=== PATIENT | male | born 1995 | race African-American/Black ===

== ENCOUNTER 2016-06-01 16:04 | Emergency (ER) | payer SELFPAY ==
[~2016-06-01] VITALS: Ht 185.4 cm; Wt 68.0 kg
[2016-06-01] MEDS ORDERED: ONDANSETRON PF 4 MG/2 ML VIAL. ONE (16:21)
[2016-06-01] MEDS ORDERED: LORAZEPAM 2 MG/ML VIAL ONE (16:39)
[2016-06-01] MEDS ORDERED: LORAZEPAM 2 MG/ML VIAL IV ONE (17:00)
[2016-06-01] MEDS ORDERED: IV NORMAL SALINE 1000ML BAG 1,000 ML IV ONE (17:00)
[2016-06-01 17:02] LABS: BARBITURATES NEG (NEG); BENZODIAZEPINES NEG (NEG); CANNABINOIDS POS (NEG); COCAINE NEG (NEG); METHADONE NEG (NEG); OPIATES NEG (NEG); PHENCYCLIDINE NEG (NEG)
[2016-06-01 17:05] LABS: ETHANOL, URINE NEG (NEG)
[2016-06-01 17:09] LABS: CALCIUM 10.1 mg/dL (8.5-10.1); CREATININE 1.4 mg/dL (0.7-1.3); GFR 77.4
[2016-06-01 17:14] LABS: ETHANOL < 10 mg/dL (0-10)
[2016-06-01] MEDS ORDERED: ONDANSETRON PF 4 MG/2 ML VIAL. IV ONE (17:15)
[2016-06-01 17:17] LABS: POTASSIUM 2.7 mmol/L (3.5-5.1)
[2016-06-01 17:24] LABS: BASO % 0 % (0-3); EOS % 0 % (0-3); HEMATOCRIT 44.3 % (39.0-53.0); HEMOGLOBIN 14.8 g/dL (13.0-17.5); LYMPH # 1.1 x10^3/uL (1.0-4.8); LYMPH % 6 % (24-48); MEAN CORPUSCULAR HEMOGLOBIN 31 pg (25-35); MEAN CORPUSCULAR HGB CONC 33 g/dL (31-37); MEAN CORPUSCULAR VOLUME 92 fL (79-100); MONO % 9 % (0-9); NEUT % 85 % (31-73); PLATELET COUNT 192 x10^3/uL (140-400); RED BLOOD COUNT 4.82 x10^6/uL (4.30-5.70); WHITE BLOOD COUNT 16.6 x10^3/uL (4.0-11.0)
--- NOTE | 2016-06-01 17:45 | RAD ---
PROCEDURE CT head without intravenous contrast. HISTORY Altered mental status. TECHNIQUE Axial images are obtained of the head from the skull base through the vertex without IV contrast Exposure: One or more of the following individualized dose reduction techniques were utilized for this examination: 1. Automated exposure control. 2. Adjustment of the mA and/or kV according to patient size. 3. Use of iterative reconstruction technique. COMPARISON CT head February 26, 2015. FINDINGS The ventricles are appropriate in size, shape, and location for the patient's age.No obvious intracranial mass, mass-effect, midline shift, hemorrhage or obvious acute infarction is identified.Basilar cisterns are patent. Bone windows demonstrate no acute calvarial abnormality.There is opacification of a single left ethmoid air cell, similar to previous study. IMPRESSION No acute intracranial process. Electronically signed by: El Cabrera MD (Jun 01, 2016 17:44:14)
[2016-06-01 18:35] VITALS: BP 113/56
--- NOTE | 2016-06-01 19:12 | PHYS DOC ---
Past Medical History Past Medical History: No Pertinent History Past Surgical History: No Surgical History Alcohol Use: None Drug Use: Marijuana, Other Social History Narrative: PT IS ON SOME UNKNOWN SUBSTANCE Adult General Chief Complaint Chief Complaint: ALTERED MENTAL STATUS HPI HPI This is an otherwise healthy 20-year-old male presents with mental status changes after being found any parking lot acutely confused. Patient on arrival cannot tell me where he is and his repetitive with his speech. He denies any specific complaints. He does not appear to be in any acute distress. Family at bedside states he does not have any history of significant past medical problems. Review of Systems Review of Systems A 10 point review of systems is unable be obtained secondary to the patient's mental status. Current Medications Current Medications Current Medications Medications (Trade) Dose Ordered Sig/Korin Start Time Stop Time Status Last Admin Dose Admin Lorazepam (Ativan) 2 mg STK-MED ONCE 06/01/16 16:39 06/01/16 16:40 DC Lorazepam 2 mg 2 mg 1X ONCE 06/01/16 17:00 06/01/16 17:01 DC 06/01/16 17:00 2 MG Ondansetron HCl (Zofran) 4 mg 1X ONCE 06/01/16 17:15 06/01/16 17:16 DC 06/01/16 17:09 4 MG Sodium Chloride (Iv Sodium Chloride 0.9% 1000ml Bag) 1,000 ml @ 1,000 mls/hr 1X ONCE 06/01/16 17:00 06/01/16 17:59 DC 06/01/16 17:00 1,000 MLS/HR Allergies Allergies Allergies Coded Allergies Type Severity Reaction Last Updated Verified No Known Drug Allergies 02/26/15 No Physical Exam Physical Exam Constitutional: Well developed, well nourished, no acute distress, non-toxic appearance. [] HENT: Normocephalic, atraumatic, bilateral external ears normal, oropharynx moist, no oral exudates, nose normal. [] Eyes: PERRLA, EOMI, conjunctiva normal, no discharge. [] Neck: Normal range of motion, no tenderness, supple, no stridor. [] Cardiovascular:Heart rate regular rhythm, no murmur [] Lungs & Thorax: Bilateral breath sounds clear to auscultation [] Abdomen: Bowel sounds normal, soft, no tenderness, no masses, no pulsatile masses. [] Skin: Warm, dry, no erythema, no rash. [] Back: No tenderness, no CVA tenderness. [] Extremities: No tenderness, no cyanosis, no clubbing, ROM intact, no edema. [] Neurologic: Alert and oriented X 1 (person), normal motor function, normal sensory function, no focal deficits noted. [] Psychologic: Affect normal, judgement normal, mood normal. [] Current Patient Data Vital Signs Vital Signs Date Time Temp Pulse Resp B/P Pulse Ox O2 Delivery O2 Flow Rate FiO2 06/01/16 18:35 84 20 113/56 98 Room Air 06/01/16 16:35 97.9 97.9 Lab Values Laboratory Tests Test 06/01/16 16:20 06/01/16 16:30 06/01/16 17:17 Sodium Level 141mmol/L (136-145) Potassium Level 2.7mmol/L (3.5-5.1) *L Chloride Level 98mmol/L (98-107) Carbon Dioxide Level 21mmol/L (21-32) Anion Gap 22 (6-14) H Blood Urea Nitrogen 15mg/dL (8-26) Creatinine 1.4mg/dL (0.7-1.3) H Estimated GFR (Cockcroft-Gault) 77.4 Glucose Level 153mg/dL (70-99) H Calcium Level 10.1mg/dL (8.5-10.1) Salicylates Level < 2.8mg/dL (2.8-20.0) L Salicylate Last Dose Date Unk Salicylate Last Dose Time Unk Acetaminophen Level < 2mcg/ml (10-30) L Acetaminophen Last Dose Date Unk Acetaminophen Last Dose Time Unk Ethyl Alcohol Level < 10mg/dL (0-10) Urine Opiates Screen Neg (NEG) Urine Methadone Screen Neg (NEG) Urine Barbiturates Neg (NEG) Urine Phencyclidine Screen Neg (NEG) Urine Amphetamine/Methamphetamine Neg (NEG) Urine Benzodiazepines Screen Neg (NEG) Urine Cocaine Screen Neg (NEG) Urine Cannabinoids Screen Pos (NEG) Urine Ethyl Alcohol Neg (NEG) White Blood Count 16.6x10^3/uL (4.0-11.0) H Red Blood Count 4.82x10^6/uL (4.30-5.70) Hemoglobin 14.8g/dL (13.0-17.5) Hematocrit 44.3% (39.0-53.0) Mean Corpuscular Volume 92fL (79-100) Mean Corpuscular Hemoglobin 31pg (25-35) Mean Corpuscular Hemoglobin Concent 33g/dL (31-37) Red Cell Distribution Width 13.0% (11.5-14.5) Platelet Count 192x10^3/uL (140-400) Neutrophils (%) (Auto) 85% (31-73) H Lymphocytes (%) (Auto) 6% (24-48) L Monocytes (%) (Auto) 9% (0-9) Eosinophils (%) (Auto) 0% (0-3) Basophils (%) (Auto) 0% (0-3) Neutrophils # (Auto) 14.1x10^3uL (1.8-7.7) H Lymphocytes # (Auto) 1.1x10^3/uL (1.0-4.8) Monocytes # (Auto) 1.4x10^3/uL (0.0-1.1) H Eosinophils # (Auto) 0.0x10^3/uL (0.0-0.7) Basophils # (Auto) 0.0x10^3/uL (0.0-0.2) Segmented Neutrophils % 79% (35-66) H Lymphocytes % 11% (24-48) L Atypical Lymphocytes % (Manual) 3% (0-0) H Monocytes % 7% (0-10) Platelet Estimate Adequate (ADEQUATE) Laboratory Tests 06/01/16 17:17 Laboratory Tests 06/01/16 16:20 EKG EKG EKG as interpreted by me showed a sinus tachycardia with an incomplete right bundle branch block and an approximate rate of 117 bpm. There are no acute ischemic findings on this EKG. Radiology/Procedures Radiology/Procedures CT of his head without contrast demonstrated the following: The ventricles are appropriate in size, shape, and location for the patient's age.No obvious intracranial mass, mass-effect, midline shift, hemorrhage or obvious acute infarction is identified.Basilar cisterns are patent. Bone windows demonstrate no acute calvarial abnormality.There is opacification of a single left ethmoid air cell, similar to previous study. Course & Med Decision Making Course & Med Decision Making Pertinent Labs and Imaging studies reviewed. (See chart for details) 20-year-old male with mental status changes has a toxicology screen is positive for cannabis but no other illicit substances. His blood work is unrevealing. A CT of his head was also unremarkable. Patient was observed in the department for approximately 3 hours and had significant improvement of his mental status and will be safe to be discharged to follow closely his primary care doctor. I counseled the patient at length that he is to avoid abusing any illicit substances. Dragon Disclaimer Dragon Disclaimer This electronic medical record was generated, in whole or in part, using a voice recognition dictation system. Departure Departure Impression: Primary Impression: Cannabis abuse Additional Impression: Altered mental status Disposition: 01 HOME, SELF-CARE Admitting Physician: Other Condition: IMPROVED Referrals: NO PCP (PCP) Patient Instructions: Altered Mental Status Additional Instructions: Please follow-up with your primary doctor in the next several days. Avoid abusing any illegal drugs. Continue to drink plenty of fluids. Return to the ER if you develop any worsening of your symptoms. Problem Qualifiers CASEY VELOZ DO Jun 01, 2016 19:12
[2016-06-01 19:46] LABS: PLT ESTIMATE ADEQUATE (ADEQUATE)
--- NOTE | 2016-06-02 07:45 | EKG ---
[address] [place] [id number] Test Date: 2016-06-01 Test Time: 16:54:41 Pat Name: GLORIA HADLEY Department: Room: Gender: M [employer]: : [id number] Requested By: CASEY VELOZ Order Number: [id number] Reading MD: Measurements Intervals [place] Rate: 117 P: 68 ME: 136 QRS: 87 QRSD: 80 T: 31 QT: 338 QTc: 476 Interpretive Statements SINUS TACHYCARDIA INCOMPLETE RIGHT BUNDLE BRANCH BLOCK QRS(T) CONTOUR ABNORMALITY CONSIDER ANTEROLATERAL MYOCARDIAL DAMAGE CONSIDER INFERIOR MYOCARDIAL DAMAGE POSSIBLY ABNORMAL ECG RI6.01 No previous ECG available for comparison
== END 2016-06-01 19:29 | disposition home or self-care (01) ==
LOC: ER 16:04
DX: F12.10 Cannabis abuse, uncomplicated (principal); R41.82 Altered mental status, unspecified
CPT/HCPCS: 36415; 70450; 80048; 85007; 85027; 93005; 96361; 96374; 96375; 99285; G0480; G0481; G6038; J2060; J2405; J7030; 80196